=== PATIENT | male | born 1970 | race Caucasian/White ===

== ENCOUNTER 2022-12-23 14:11 | Outpatient (CLI) | payer BC | END 2022-12-23 14:12 | disposition home or self-care (01) | LOC: CSHCT 14:11 | PROVIDERS: ATTEND Nurse Practitioner Family | DX: M50.10 Cervical disc disorder with radiculopathy, unspecified cervical region (principal) | CPT/HCPCS: 72125 ==

== ENCOUNTER 2024-01-26 11:08 | Outpatient (CLI) | payer BC | END 2024-01-26 11:09 | disposition home or self-care (01) | LOC: CSHULT 11:08 | PROVIDERS: ATTEND Urology | DX: N43.3 Hydrocele, unspecified (principal); N50.1 Vascular disorders of male genital organs | CPT/HCPCS: 76870 ==